=== PATIENT | female | born 1955 | race Hispanic/Latino ===

== ENCOUNTER 2020-10-26 23:01 | Emergency (ER) | payer OTHER ==
[~2020-10-26] VITALS: Ht 175.3 cm; Wt 65.8 kg
[2020-10-26 23:14] VITALS: BP 225/123
[2020-10-27] MEDS ORDERED: PREDNISONE 20 MG TABLET PO SCH (01:15)
[2020-10-27] MEDS ORDERED: ACYCLOVIR 800 MG TABLET PO SCH (01:15)
[2020-10-27] MEDS ORDERED: KETOROLAC 60 MG VIAL (30MG/ML) IM SCH (01:15)
[2020-10-27] MEDS ORDERED: ACYC-138 PO (01:33)
[2020-10-27] MEDS ORDERED: PRED50TA2 PO (01:33)
[2020-10-27] MEDS ORDERED: ACYCLOVIR 200 MG CAPSULE PO SCH (02:00)
== END 2020-10-27 02:07 | disposition home or self-care (01) ==
LOC: EDH 23:01 → EDSEX 23:01 → EDH 10-27 02:07
DX: B02.9 Zoster without complications (principal)
CPT/HCPCS: 96372; 99283; J1885